=== PATIENT | male | born 1950 | race Caucasian/White ===

== ENCOUNTER 2025-02-14 10:48 | Outpatient (AMB) | payer MEDICARE, SELFPAY ==
[2025-02-14 10:55] VITALS: BP 112/74; PULSE 88; O2SAT 96; BMI 30.6
--- NOTE | 2025-02-14 10:55 | MHC.OFFVIS ---
Vital Signs 02/14/25 10:55 Height 5 ft 7.5 in Weight 198 lb 6.656 oz BMI 30.6 BP 112/74 Blood Pressure Location Lt brachial Position Sitting Pulse 88 Pulse Source Pulse Oximeter Pulse Oximetry (%) 96 Oxygen Delivery Method Room Air Intake Visit Reasons: Hypoxia/Bronchitis Intake Note: pt is here as a new patient, he had covid and was in a coma for over 30 days back 2020. He has oxygen at night 2 liters. Communications Specialist Required: No Allergies No Known Allergies Allergy (Verified 02/14/25 11:49) Medication List - Last Reconciled 02/14/25 by Raghavendra Matamoros MD albuterol sulfate 90 mcg/actuation 2 puffs inhalation Q4H PRN Do you need a note to return to daycare/school/sports/work: No HPI HPI Hypoxia/Bronchitis: Details: 74 YEARS OLD GENTLEMAN IS BEING SEEN FOR THE 1ST TIME FOR PULMONARY EVALUATION AND ONGOING MANAGEMENT. PREVIOUSLY HE HAS BEEN UNDER CARE OF DR.SHAMEEM PITTS ARE HIS PULMONARY ISSUES. HIS PAST MEDICAL HISTORY IS POSITIVE FOR HYPERTENSION, OSTEOARTHRITIS, BOUT OF GI BLEEDING MANY YEARS AGO WHEN HE REQUIRED 2 UNITS OF RED BLOOD CELLS, AND LATELY DEVELOPED TO GI BLEEDING SO HIS ANTICOAGULATION WAS STOPPED AND HE WAS TREATED WITH IVC FILTER. ALSO HAS HISTORY OF THE CERVICAL SPINE SURGERY FOR DEGENERATIVE ARTHRITIS AND HAS HAD BILATERAL HIP REPLACEMENT. PATIENT HAD RECOVERED FROM ALL THESE ILLNESSES, HE WAS QUITE ACTIVE BICYCLING UP TO 50-60 MILES WEEKLY. BACK IN 2020 HE SUFFERED FROM COVID INFECTION, HE WAS TREATED IN [facility] FOR ABOUT 4 WEEKS, . HE STATES THAT HE REMAINED IN COMA FOR A FEW WEEKS, HE WAS ON OXYGEN, HE WAS NOT PUT ON VENTILATOR. LUCKILY AFTER THIS PROLONGED ILLNESS HE DID RECOVER AND THEN SPENT A FEW MONTHS IN THE REHAB UNIT. AFTERWARDS HE HAS HAD RESIDUAL PULMONARY FIBROSIS, WITH A COMPONENT OF OBSTRUCTIVE LUNG DISORDER. HE HAS BEEN ON TRELEGY BRIEFLY THEN BREO WAS ORDERED BUT NOT COVERED BY INSURANCE, SO HE ENDED UP HAVING ONLY ALBUTEROL TO USE ON A P.R.N. BASIS. HE WAS FOUND TO BE HYPOXEMIC AND ESPECIALLY AT NIGHT AND HAS BEEN ON O2 2 L/MINUTE. HE CLAIMS THAT HE HAS NOT NEEDED THE OXYGEN DURING DAYTIME. TODAY HE CLAIMS THAT HE IS DOING WELL. WITH HIS ROUTINE DAILY WALKING HE DOES NOT HAVE ANY SHORTNESS OF BREATH, EVEN NOW HE IS DOING BICYCLING ABOUT 15-20 MILES DAILY. HE USES ALBUTEROL HFA ONLY PRN , WHICH IS MOSTLY AT NIGHT BEFORE HE GOES TO BED. HE USES O2 2 L/MINUTE AT NIGHT ONLY AND NOT DURING THE DAYTIME. [facility] Medical History (Updated 02/14/25 @ 12:03 by Raghavendra Matamoros MD) Nocturnal hypoxemia COPD (chronic obstructive pulmonary disease) Pulmonary fibrosis Social History Patient Tobacco Use Status: Former Tobacco user Review of Systems Const All systems reviewed & are unremarkable except as noted in HPI and below Eyes Reports no additional complaints ENT Reports no additional complaints Card Denies chest pain, Denies irregular heart rhythm, Denies leg edema and Denies dyspnea on exertion Resp Reports as per HPI and Denies dyspnea on exertion GI Reports no additional complaints Reports no additional complaints Musc Reports no additional complaints Skin/Breast Reports system reviewed and no additional complaints, except as documented Neuro Reports no additional complaints Psych Reports no additional complaints Fady/Lymph Reports no additional complaints Aller/Immun Reports no additional complaints Physical Exam Vital Signs: Last Vital Signs Pulse 88 02/14/25 10:55 BP 112/74 02/14/25 10:55 Pulse Ox 96 02/14/25 10:55 Oxygen Delivery Method Room Air 02/14/25 10:55 BMI result Body Mass Index 30.6 Const General: healthy appearing, comfortable, no acute distress, alert and awake Orientation/consciousness: patient oriented x3 HEENT Head: Yes normal to inspection General nose exam: No nasal polyps present and No nasal discharge present Face and sinus: Yes sinuses nontender Mouth: oropharynx normal Throat: Yes posterior oropharynx normal Eyes General: appearance normal, both eyes and all related structures Neck Neck: Yes normal visual inspection, Yes no lymphadenopathy, Yes trachea midline and Yes no JVD Thyroid: Thyroid normal Chest Chest palpation & inspection: normal inspection of the chest, normal palpation of entire chest wall and no tenderness Resp Other: CHEST IS SYMMETRICAL PERCUSSION NOTE RESONANT. BREATH SOUNDS ARE SLIGHTLY DIMINISHED ESPECIALLY OVER THE BASILAR AREAS. NO WHEEZES OR CREPITATIONS ARE HEARD TODAY. Cardio Palpation: normal PMI Rate: regular rate Rhythm: regular rhythm Heart sounds: no gallops and no murmurs Peripheral pulses: Peripheral pulses 2+ throughout GI Palpation (GI): Soft to palpation, nontender, No hepatosplenomegaly present and no masses Auscultation: normal bowel sounds Back/Spine/Pelvis Thoracic/Lumbar Spine: thoracic and lumbar spine normal to inspection Skin General skin exam: no rashes or lesions noted Neuro General: patient oriented x3 and no focal motor deficits Cranial nerves: Yes CN's II-XII intact bilaterally Extrem General: Yes normal to inspection, Yes no clubbing, cyanosis or edema and Yes no calf tenderness Psych Appearance: grossly normal and well kempt Speech and movement: Normal speech and movement present Assessment & Plan Assessment & Plan (1) Pulmonary fibrosis: Comment: HE HAD COVID PNEUMONIA IN 2020 , REQUIRING PROLONGED HOSPITALIZATION. SUBSEQUENT CHEST X-RAY WAS REPORTED TO SHOW PULMONARY FIBROSIS. CLINICALLY PATIENT SEEMS TO BE QUITE STABLE AT THIS TIME. Code(s): J84.10 - Pulmonary fibrosis, unspecified Category: Medical Plan: A BASELINE CHEST X-RAY IS ORDERED. IF NEED BE WE WILL GET A CT SCAN OF THE CHEST. (2) COPD (chronic obstructive pulmonary disease): Comment: HE HE HAS HISTORY OF SMOKING IN THE REMOTE PAST BUT QUIT IN MID 1970S. FOLLOWING THE COVID PNEUMONIA, HE HAS REQUIRED TO USE ALBUTEROL P.R.N.. 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 Code(s): J44.9 - Chronic obstructive pulmonary disease, unspecified Category: Medical Plan: WILL GET A COMPLETE PULMONARY FUNCTION TEST ON HIM. FOR THE TIME BEING JUST USE ALBUTEROL HFA 2 PUFFS Q 6 HOURS P.R.N. IF THERE IS PERSISTENT COUGH OR WHEEZING. (3) Nocturnal hypoxemia: Comment: POST COVID INFECTION/PNEUMONIA, HE WAS NOTED TO HAVE NOCTURNAL HYPOXEMIA, AND STILL USES O2 AT NIGHT. PATIENT HAS NOT REQUIRED TO USE O2 DURING THE DAYTIME. Code(s): G47.34 - Idiopathic sleep related nonobstructive alveolar hypoventilation Category: Medical Plan: ADVISED TO CONTINUE USING O2 2 L/MINUTE AT NIGHT. AT SOME POINT WE CAN DO OVERNIGHT OXIMETRY RECORDING ON ROOM AIR AND SEE IF HE STILL NEEDS OXYGEN OR NOT. Orders: Orders XR chest 2V Today J84.10 - Pulmonary fibrosis, unspecified PFT pulmonary function test Today G47.34 - Idiopathic sleep related nonobstructive alveolar hypoventilation, J44.9 - Chronic obstructive pulmonary disease, unspecified, J84.10 - Pulmonary fibrosis, unspecified Coding Level of Care Code New Pt Level 3 (09839) Diagnoses Pulmonary fibrosis J84.10 COPD (chronic obstructive pulmonary disease) J44.9 Nocturnal hypoxemia G47.34
--- OUTSIDE RECORDS SUMMARY | 2025-02-14 11:39 | XMS_ITS | Clinical Summary ---
Author Organization [employer] Address [address] [facility] [address] [place] [address] Care Team Providers Care Driller Brake Lining Name Role Phone Unavailable Primary Care Provider Unavailabl e Medications cyanocobalamin (Vitamin B-12) 500 MCG tablet Take 500 mcg by mouth in the morning. 06/18/2022 Active ipratropium-albu terol (Duo-Neb) 0.5-2.5 mg/3 mL nebulizer solution INHALE 3 ML INTO THE LUNGS 4 TIMES DAILY. 06/07/2023 Active Fluticasone-Umec lidin-Vilant (Trelegy Ellipta) 100-62.5-25 MCG/ACT aerosol powder Inhale 1 puff in the morning. 06/18/2022 Active Social History Tobacco Use Types Packs/Day Years Used Date Smoking Tobacco: Former Cigarettes Smokeless Tobacco: Never Tobacco Cessation:Counseling Given: Not Answered Sex and Gender Information Value Date Recorded Sex Assigned at Male 07/21/2022 10:36 AM EDT Legal Sex Male 10:36 AM EDT Gender Identity Male 07/21/2022 10:36 AM EDT Sexual Orientation Straight 07/21/2022 10 :36 AM EDT Last Filed Vital Signs Vital Sign Reading Time Taken Comments Blood Pressure 140/87 08/04/2023 10:56 AM EST Pulse 99 08/04/2023 10:56 AM EST Temperature - - Respiratory Rate - - Oxygen Saturation - - Inhaled Oxygen Concentration - - Weight - - Height - - Body Mass Index - - Plan of Treatment Health Maintenance Due Date Last Done Comments Dental X-Ray: Bitewings 1948 Dental X-Ray: Full Mouth 1948 Depression Screening 1948 Lipid Panel 1948 SDOH Screening 1948 Alcohol/Substance Use Screening 1960 Hepatitis C Screening 1966 Zoster Vaccines (1 of 2) 1998 RSV Patients and Patients Aged 60 years or older (1 - 1-dose 75+ series) 12/27/2023 Dental Oral Exam 01/23/2024 07/24/2023 Dental Prophylaxis 02/03/2024 08/04/2023 Pneumococcal Vaccine: 50+ Years (2 of 2 - PCV) 05/01/2024 05/01/2023 COVID-19 Vaccine (3 - season) 2024 12/30/2020, 12/09/2020 Influenza Vaccine (#1) 2024 , 07/10/2017, 07/10/2017, Additional history exists Tobacco Screening 08/04/2024 08/04/2023 DTaP/Tdap/Td Vaccines (3 - Td or Tdap) 05/01/2033 05/01/2023, 04/01/2013 HIB Vaccines Aged Out No longer eligi ble based on patient's age to complete this topic HPV Vaccines Aged Out No longer eligi ble based on patient's age to complete this topic Hepatitis A Vaccines Aged Out No long er eligible based on patient's age to complete this topic Hepatitis B Vaccines Aged Out No long er eligible based on patient's age to complete this topic IPV Vaccines Aged Out No longer eligi ble based on patient's age to complete this topic Meningococcal B Vaccine Aged Out No l onger eligible based on patient's age to complete this topic Meningococcal Vaccine Aged Out No rosy patricia eligible based on patient's age to complete this topic RSV under 20 months Aged Out No longe r eligible based on patient's age to complete this topic Rotavirus Vaccines Aged Out No longer eligible based on patient's age to complete this topic Procedures Procedure Name Priority Date/Time Associated Diagnosis Comments PROPHYLAXIS - ADULT Routine 08/04/2023 1 1:00 AM EST COMPREHENSIVE ORAL EVALUATION - NEW OR ESTABLISHED PATIENT Routine 07/24/2023 10:00 AM EDT from Last 3 Months or Most Recently Relevant to Health Maintenance
== END 2025-02-14 11:49 | disposition home or self-care (01) ==
LOC: HO.HPS 10:49
PROVIDERS: PCP Internal Medicine; Referring Provider Internal Medicine; Visit Provider Internal Medicine
DX: J84.10 Pulmonary fibrosis, unspecified (principal); J44.9 Chronic obstructive pulmonary disease, unspecified; G47.34 Idiopathic sleep related nonobstructive alveolar hypoventilation
CPT/HCPCS: 99203

== ENCOUNTER 2025-02-14 10:48 | Outpatient (REF) | payer MEDICARE, SELFPAY ==
--- NOTE | ~2025-02-14 | XR_ITS ---
EXAMINATION: XR CHEST CLINICAL INFORMATION: J84.10 - Pulmonary fibrosis, unspecified COMPARISON: CT chest 02/04/2022. TECHNIQUE: 2 views of the chest were obtained. FINDINGS: The cardiac, hilar, and mediastinal contours are normal. Aortic mural calcifications. Subpleural increased interstitial markings throughout both lungs, most notable in the right base. Findings are in keeping with given history of interstitial fibrosis. No pneumonic consolidation. There is no pneumothorax or pleural effusion. There is no focal osseous or soft tissue abnormality. There is scoliosis and degenerative change of the spine. XR/XR chest 2V IMPRESSION: Diffuse subpleural increased interstitial markings in keeping with given history of interstitial fibrosis. No focal pneumonia. Electronically signed by: Prakash Wallace MD 02/14/2025 12:54 PM EDT
== END 2025-02-14 10:49 | disposition home or self-care (01) ==
LOC: HO.XRAY 10:48
PROVIDERS: PCP Internal Medicine; Referring Provider Internal Medicine; Visit Provider Internal Medicine
DX: J84.10 Pulmonary fibrosis, unspecified (principal); J44.9 Chronic obstructive pulmonary disease, unspecified; G47.34 Idiopathic sleep related nonobstructive alveolar hypoventilation
CPT/HCPCS: 71046; 99202

== ENCOUNTER → 2025-02-14 11:55 | Outpatient (BNV) | payer MEDICARE, SELFPAY | PROVIDERS: PCP Internal Medicine; Referring Provider Internal Medicine; Visit Provider Radiology Diagnostic Radiology | DX: J84.9 Interstitial pulmonary disease, unspecified (principal) | CPT/HCPCS: 71046 ==

== ENCOUNTER 2025-02-15 09:52 | Outpatient (REF) | payer MEDICARE, SELFPAY ==
--- NOTE | 2025-02-15 09:58 | PFT_ITS ---
Indication: MIKI Spirometry [FEV1 to FVC 87%; FEV1 2.25 L; FVC 2.58 L. No significant response to bronchodilators noted.] Lung Volumes [Total lung capacity 70% predicted; residual volume 60% predicted; expiratory reserve volume 30% predicted] Diffusion Capacity [DLCO 55% predicted; DLCO VA 93% predicted] Comparisons [none] Interpretation [No obstructive ventilatory defects identified. No significant response to bronchodilators noted. There is a mild restrictive ventilatory defect consistent with mild restrictive lung disease. In part could be due to an elevated BMI. There is also a [id number] diffusion impairment that does correct to normal when corrected for the alveolar volume. Clinical correlation warranted.] MTDD
--- OUTSIDE RECORDS SUMMARY | 2025-02-15 10:41 | XMS_ITS | Encounter Summary ---
Author Organization [facility] Address [address] [place] [address] Care Team Providers Care Practice Billing Associate Name Role Phone Spencer Ugalde Primary Care Provider [phone] Reason for Visit * Reason Onset Date Comments Pre-op Needed 07/19/2024 Encounter Details Date Type Department Care Team Description 07/19/2024 Telephone Adult Medicine [address] [address] Spencer Ugalde [address] [place] [id number] Pre-op Needed Social History Tobacco Use Types Packs/Day Years Used Date Smoking Tobacco: Former Cigarettes Q uit: 09/21/1975 Smokeless Tobacco: Never Comments:QUIT 40 YEARS AGO Alcohol Use Standard Drinks/Week Comments No 0 (1 standard drink = 0.6 oz pur e alcohol) Sex Assigned at Date Recorded Not on file Job Start Date Occupation Industry Not on file Not on file Not on file documented as of this encounter Miscellaneous Notes * Telephone Encounter - Fuad Payan - 07/19/2024 4:31 PM EDT Date of surgery:08/31/24 What surgery is patient having (gall bladder, cataract, appendix, etc...)?: Catracts Surgery Surgeon's name: Benedict Avitia MD Office phone number of surgeon: Fax # for surgeons office: n?A (Required) Where is surgery being performed? [facility] Jean Carlos [address] Diagnosis/problem for surgery: N/A Is an EKG required for the pre-op workup? YES PCP: Spencer Ugalde Did you verify that the insurance below is correct? YES Patients insurance: [place] / [place] / Product Type: MEDICARE [id number] documented in this encounter Plan of Treatment Not on file documented as of this encounter Visit Diagnoses Not on filedocumented in this encounter Care Teams Practice Billing Associate Relationship Specialty Start Date End Date Spencer Ugalde [address] [place] [address] PCP - General Internal Medicine 12/03/21 documented as of this encounter
[2025-02-15 10:43] VITALS: PULSE 74; O2SAT 97
== END 2025-02-15 09:53 | disposition home or self-care (01) ==
LOC: HO.RESP 09:52
PROVIDERS: PCP Internal Medicine; Visit Provider Internal Medicine
DX: J44.9 Chronic obstructive pulmonary disease, unspecified (principal); G47.34 Idiopathic sleep related nonobstructive alveolar hypoventilation; J84.10 Pulmonary fibrosis, unspecified
CPT/HCPCS: 94010; 94640; 94727; 94729

== ENCOUNTER → 2025-02-15 09:58 | Outpatient (BNV) | payer MEDICARE, SELFPAY | PROVIDERS: PCP Internal Medicine; Visit Provider Hospitalist | DX: J44.9 Chronic obstructive pulmonary disease, unspecified (principal) | CPT/HCPCS: 94060; 94727; 94729 ==

== ENCOUNTER 2025-03-30 10:08 | Outpatient (AMB) | payer MEDICARE, SELFPAY ==
[2025-03-30 10:20] VITALS: BP 120/80; PULSE 79; O2SAT 96; BMI 31.0
--- NOTE | 2025-03-30 10:20 | A.OFFVIS_ITS ---
Vital Signs 03/30/25 10:20 Height 5 ft 7.5 in Weight 200 lb 9.93 oz BMI 31.0 BP 120/80 Blood Pressure Location Lt brachial Position Sitting Pulse 79 Pulse Source Pulse Oximeter Pulse Oximetry (%) 96 Oxygen Delivery Method Room Air Intake Visit Reasons: Hypoxia/Bronchitis Intake Note: pt is here for follow up and states he gets phlegm build up and he is using oxygen at night every night on 2 liters, please send in refill on albuterol hfa to pharmacy. Laboratory Tester Required: No Allergies No Known Allergies Allergy (Verified 03/30/25 10:45) Medication List - Last Reconciled 03/30/25 by Raghavendra Matamoros MD albuterol sulfate 90 mcg/actuation 2 puffs inhalation Q4H PRN Do you need a note to return to daycare/school/sports/work: No HPI HPI Hypoxia/Bronchitis: Details: This 74 years old very pleasant gentleman is here for short-term follow-up after CT scan of the chest and pulmonary function test. He has mild intermittent cough, sometimes with mucus and not able to clear it. Uses albuterol HFA only once in a while. Physically remains active and he is able to bicycle up to 4 or 5 miles every other day. He has been using oxygen at night 2 L/minute for nocturnal hypoxemia for the last few years, claiming that he sleeps better and his brain is refreshed when he uses oxygen. He is former smoker but quit many years ago. [facility] Medical History (Updated 03/30/25 @ 10:54 by Raghavendra Matamoros MD) Cough Nocturnal hypoxemia COPD (chronic obstructive pulmonary disease) Pulmonary fibrosis Social History Patient Tobacco Use Status: Former Tobacco user Review of Systems Const All systems reviewed & are unremarkable except as noted in HPI and below Eyes Reports no additional complaints ENT Reports no additional complaints Card Denies chest pain, Denies irregular heart rhythm, Denies leg edema and Denies dyspnea on exertion Resp Reports as per HPI and Denies dyspnea on exertion GI Reports no additional complaints Reports no additional complaints Musc Reports no additional complaints Skin/Breast Reports system reviewed and no additional complaints, except as documented Neuro Reports no additional complaints Psych Reports no additional complaints Fady/Lymph Reports no additional complaints Aller/Immun Reports no additional complaints Physical Exam Vital Signs: Last Vital Signs Pulse 79 03/30/25 10:20 BP 120/80 03/30/25 10:20 Pulse Ox 96 03/30/25 10:20 Oxygen Delivery Method Room Air 03/30/25 10:20 BMI result Body Mass Index 31.0 Const General: healthy appearing, comfortable, no acute distress, alert and awake Orientation/consciousness: patient oriented x3 HEENT Head: Yes normal to inspection General nose exam: No nasal polyps present and No nasal discharge present Face and sinus: Yes sinuses nontender Mouth: oropharynx normal Throat: Yes posterior oropharynx normal Eyes General: appearance normal, both eyes and all related structures Neck Neck: Yes normal visual inspection, Yes no lymphadenopathy, Yes trachea midline and Yes no JVD Thyroid: Thyroid normal Chest Chest palpation & inspection: normal inspection of the chest, normal palpation of entire chest wall and no tenderness Resp Other: CHEST IS SYMMETRICAL PERCUSSION NOTE RESONANT. BREATH SOUNDS ARE SLIGHTLY DIMINISHED ESPECIALLY OVER THE BASILAR AREAS. DOES HAVE INSPIRATORY CRACKLES OVER BOTH LOWER LOBES. NO WHEEZES . Cardio Palpation: normal PMI Rate: regular rate Rhythm: regular rhythm Heart sounds: no gallops and no murmurs Peripheral pulses: Peripheral pulses 2+ throughout GI Palpation (GI): Soft to palpation, nontender, No hepatosplenomegaly present and no masses Auscultation: normal bowel sounds Back/Spine/Pelvis Thoracic/Lumbar Spine: thoracic and lumbar spine normal to inspection Skin General skin exam: no rashes or lesions noted Neuro General: patient oriented x3 and no focal motor deficits Cranial nerves: Yes CN's II-XII intact bilaterally Extrem General: Yes normal to inspection, Yes no clubbing, cyanosis or edema and Yes no calf tenderness Psych Appearance: grossly normal and well kempt Speech and movement: Normal speech and movement present Results Reviewed Results Reviewed: PULMONARY FUNCTION TEST: MILD RESTRICTIVE LUNG DISORDER , NO RESPONSE TO BRONCHODILATOR THERAPY. CT SCAN OF THE CHEST, DIFFUSE SUB PLEURAL FIBROTIC CHANGES WITH RETICULATION. Assessment & Plan Assessment & Plan (1) Pulmonary fibrosis: Comment: HE HAD COVID PNEUMONIA IN 2020 , REQUIRING PROLONGED HOSPITALIZATION. SUBSEQUENT CHEST X-RAY WAS REPORTED TO SHOW PULMONARY FIBROSIS. CT SCAN OF THE CHEST CONFIRMS PRESENCE SINCE OF SUB PLEURAL RETICULATION AND FIBROTIC CHANGES. Code(s): J84.10 - Pulmonary fibrosis, unspecified Category: Medical Plan: EXPLAINED TO THE PATIENT ABOUT PULMONARY FIBROSIS, CURRENTLY SYMPTOMS ARE MINIMAL. WILL NEED TO BE MONITORED ON A YEARLY BASIS, I TOLD HIM THAT THE ONLY THING WHICH WILL MAKE IT WORSE IS RECURRENT INFECTIONS AND HE HAS TO AVOID THAT. (2) Nocturnal hypoxemia: Comment: POST COVID INFECTION/PNEUMONIA, HE WAS NOTED TO HAVE NOCTURNAL HYPOXEMIA, AND STILL USES O2 AT NIGHT. PATIENT HAS NOT REQUIRED TO USE O2 DURING THE DAYTIME. 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 IF REQUIRED BY INSURANCE THEN WE MAY HAVE TO DO OVERNIGHT OXIMETRY RECORDING ON ROOM AIR. (3) Cough: Comment: MILD INTERMITTENT COUGH IS SECONDARY TO PULMONARY FIBROSIS, Code(s): R05.9 - Cough, unspecified Category: Medical Plan: PATIENT WAS EDUCATED ABOUT MINIMAL DEGREE OF PULMONARY FIBROSIS, AND REASON FOR COUGH. THE COUGH IS MILD AND NOT VERY FREQUENT , HE DOES NOT NEED ANY COUGH SUPPRESSANT MED. HOWEVER MAY USE ALBUTEROL HFA 2 PUFFS Q 4-6 HOURS P.R.N. IF HE HAS PERSISTENT COUGH OR WHEEZING. Coding Level of Care Code Est Pt Level 3 (34842) Diagnoses Pulmonary fibrosis J84.10 Nocturnal hypoxemia G47.34 Cough R05.9
--- OUTSIDE RECORDS SUMMARY | 2025-03-30 10:45 | XMS_ITS | Encounter Summary ---
Author Organization [facility] Address [address] [place] [address] Care Team Providers Care Automobile Lights Assembler Name Role Phone Spencer Ugalde Primary Care Provider [phone] Reason for Visit * Reason Onset Date Comments Pre-op Needed 07/19/2024 Encounter Details Date Type Department Care Team Description 07/19/2024 Telephone Adult Medicine [address] [address] Spencer Ugalde [address] [place] [id number] Pre-op Needed Social History Tobacco Use Types [...] [facility] [place] [address] Diagnosis/problem for surgery: N/A Is an EKG required for the pre-op workup? YES PCP: Spencer Ugalde Did you verify that the insurance below is correct? YES Patients insurance: [place] / [place] / Product Type: MEDICARE [id number] documented in this encounter Plan of Treatment Not on file documented as of this encounter Visit Diagnoses Not on filedocumented in this encounter Care Teams Automobile Lights Assembler Relationship Specialty Start Date End Date Spencer Ugalde [address] [place] [address] PCP - General Internal Medicine 12/03/21 documented as of this encounter
--- OUTSIDE RECORDS SUMMARY | 2025-03-30 10:45 | XMS_ITS | Clinical Summary ---
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 11/25/2023 Active cyanocobalamin (VITAMIN B-12) 500 mcg tablet Take 500 mcg by mouth three times a week. 07/08/2023 Active TURMERIC ORAL Take 1 Cap by mouth daily. Active multivitamin with minerals (MULTIPLE VITAMIN-MINERAL S ORAL) Take 1 Tab by mouth daily. Active MAGNESIUM ORAL Take 1 Tab by mouth daily. Active UNABLE TO FIND MISC NATURAL PRODUCTS (FOCUSED MIND OR) Sig - Route: Take by mouth daily. - Oral Active fluticasone furoate-vilante roL (BREO ELLIPTA) 100-25 mcg/dose inhaler Inhale 1 puff by mouth 1 (one) time each day. 1 each 5 01/17/2025 Active cyclobenzaprine (FLEXERIL) 5 mg tablet Take 1 tablet (5 mg total) by mouth at bedtime as needed for muscle spasms. 30 tablet 3 01/17/2025 Active albuterol HFA (PROAIR HFA ; PROVENTIL HFA ; VENTOLIN HFA) 90 mcg/actuation inhaler Inhale 2 puffs by mouth every 4 (four) hours if needed for wheezing. 6.7 g 3 01/17/2025 Active Active Problems Problem Noted Date Diagnosed Date B12 deficiency 01/16/2025 Chronic bronchitis (CMS/HCC V24, CMS/[facility] V28) Contact dermatitis 05/06/2024 Chronic respiratory failure with hypoxia ([facility] V24, [facility] V28) 12/20/2021 Gastroesophageal reflux disease without esophagi tis 12/20/2021 Iron deficiency anemia due to chronic blood loss 12/20/2021 Upper GI bleed 12/20/2021 Right carpal tunnel syndrome 06/04/2021 Left carpal tunnel syndrome 03/31/2021 Carpal tunnel syndrome on both sides 07/06/2020 Overview (08/02/2024): EMG/NCS 06/2020 Hyperlipidemia 04/17/2020 Neck pain 05/11/2016 Overview (08/02/2024): 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 HTN (hypertension) 06/12/2014 Benign prostatic hyperplasia with urinary obstru ction 03/16/2014 Microhematuria 03/16/2014 Impaired fasting glucose 04/05/2013 Overview (08/02/2024): Glucose 110 mg per DL, 04/05/2013 Incomplete right bundle branch block 07/02/2011 Osteoarthritis 07/02/2011 Overview (08/02/2024): Left total hip replacement 2001 Encounters Date Type Department Care Team Description 03/21/2025 10:30 AM EDT Consult Orthopedic Surgery - [address] [phone] Dami Rios DPM Arthritis of both feet (Primary Dx); Pain in toes of both feet; Hammertoes of both feet; Dermatophytosis, nail 01/17/2025 11:15 AM EDT Office Visit Adult Medicine [address] [phone] Spencer Ugalde MD Chronic respiratory failure with hypoxia ([facility] V24, [facility] V28) (Primary Dx); Chronic bronchitis, unspecified chronic bronchitis type ([facility] V24, [facility] V28); Mixed hyperlipidemia; Gastroesophageal reflux disease without esophagitis; Spondylosis of cervical region without myelopathy or radiculopathy; Rotator cuff arthropathy of right shoulder; B12 deficiency; Hypertrophic toenail from Last 3 Months Immunizations Name Administration Dates Next Due Influenza trivalent, 0.5mL ( Fluad) 65yo and older 10/01/2023,10/01/2021,07/10/2017 Influenza trivalent, 0.5mL, preservative free (Fluarix; FluLaval; Fluzone) ages 6mo and older (Afluria) 3 years and older 07/15/2012 Pneumococcal polysaccharide 23 valent (Pneumovax 23) 2yo and older 05/01/2023 Td Tetanus diptheria (Tdvax) 7yo and older 05/01 Tdap Tetanus diptheria acell ular pertussis (Boostrix; Adacel) 7yo and older 04/01/2013 Surgical History Surgery Date Site/Laterality Comments HIP ARTHROPLASTY 2001 PROCEDURE: HISTORICAL HIP REPLACEMENT; COMMENT: left COLONOSCOPY 2012 PROCEDURE: ID COLONOSCOPY FLX DX W/COLLJ SPEC WHEN PFRMD; COMMENT: negative HIP ARTHROPLASTY 2014 Right PROCEDURE: HISTORICAL HIP REPLACEMENT NECK SURGERY 2016 PROCEDURE: HISTORICAL NECK SURGERY; COMMENT: c3-c6, Dr. Saavedra CARPAL TUNNEL RELEASE 01/28/2021 Left PROCEDURE: ID NEUROPLASTY &/TRANSPOS MEDIAN NRV CARPAL TUNNE; COMMENT: Dr. Ham Medical History Medical History Date Comments HTN (hypertension) 06/12/2014 DX:HTN (hyper tension) Incomplete right bundle branch block 07/02/2011 DX:Incomplete right bundle branch block Osteoarthritis 07/02/2011 DX:Osteoarthriti s; COMMENT: Left total hip replacement 2002 Impaired fasting glucose 04/05/2013 DX:Impa ired fasting glucose; COMMENT: Glucose 110 mg per DL, 04/05/2013 Microhematuria 03/16/2014 DX:Microhematuri a Benign prostatic hyperplasia with urinary obstruction 03/16/2014 DX:Benign prostatic hyperpla maribel with urinary obstruction Neck pain 05/11/2016 DX:Neck pain; CO MMENT: 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 Gastroesophageal reflux dise ase without esophagitis 12/20/2021 DX:Gastroesophageal reflux d isease without esophagitis Chronic bronchitis (CMS/HCC V24, CMS/HCC V28) 01/16/2025 Family History Medical History Relation Name Comments Other: pancreatitis Father Stomach cancer Mother may have been colon cancer. Diabetes Sister Relation Name Status Comments Father Mother (Age 64) Sister Social History Tobacco Use Types Packs/Day Years Used Date Smoking Tobacco: Former Cigarettes Q uit: 09/21/1975 Smokeless Tobacco: Never Tobacco Cessation:Counseling Given: Not Answered Alcohol Use Standard Drinks/Week Comments No 0 (1 standard drink = 0.6 oz pur e alcohol) Sex and Gender Information Value Date Recorded Sex Assigned at Not on file Legal Sex Male 9:12 PM EST Gender Identity Not on file Sexual Orientation Not on file Obstetrics History Last Filed Vital Signs Vital Sign Reading Time Taken Comments Blood Pressure 124/80 01/17/2025 10:57 AM EDT Pulse 87 01/17/2025 10:57 AM EDT Temperature 36.9 C (98.5 F) 01/17/2025 10:57 AM EDT Respiratory Rate 16 01/17/2025 10:57 AM EDT Oxygen Saturation - - Inhaled Oxygen Concentration - - Weight 92.5 kg (204 lb) 03/21/2025 10:42 AM EDT Height 170.2 cm (5' 7.01 ) 03/21/2025 10:42 AM E DT Body Mass Index 31.94 03/21/2025 10:42 AM EDT Plan of Treatment Upcoming Encounters Date Type Department Care Team (Late st Contact Info) Description 05/23/2025 10:30 AM EDT Office Visit Orthopedic Surgery - [place] [address] [facility] [address] [place] [phone] Dami Rios, DPJanny [address] [address] Health Maintenance Due Date Last Done Comments Zoster Vaccines (1 of 2) 1998 Medicare Annual Wellness Visit 08/30/2022 Social Influencers of Health Screening 08/30/2022 RSV Immunization Adult Patients (1 - 1-dose 75+ series) 12/27/2023 Pneumococcal Vaccine: 50+ Years (2 of 2 - PCV) 05/01/2024 05/01/2023 COVID-19 Vaccine ( - 2023-25 season) 2024 12/30/2020, 12/09/2020 Depression Screening 05/06/2025 05/06/2024 Falls Risk Assessment 05/06/2025 05/06/2024 Hypertension/CHF/CAD Annual BMP Blood Test 05/09/2025 05/09/2024, 05/09/2024 Influenza Vaccine (#1) 2025 , 10/18/2021, 10/01/2021, Additional history exists Cholesterol Screening (Lipid Panel) 05/09/2029 05/09/2024, 05/09/2024 DTaP,Tdap,and Td Vaccines (3 - Td or Tdap) 05/01/2033 05/01/2023, 04/01/2013 Hepatitis C Screening Completed 04/05/2013 HIB Vaccines Aged Out No longer eligi [...] on patient's age to complete this topic MMR Vaccines Aged Out No longer eligi ble based on patient's age to complete this topic Meningococcal ACWY Vaccine Aged Out N o longer eligible based on patient's age to complete this topic Meningococcal B Vaccine Aged Out No l onger eligible based on patient's age to complete this topic RSV Immunization Patients Under 20 months Aged Out No longer eligible based on patient's age to complete this topic Varicella Vaccines Aged Out No longer eligible based on patient's age to complete this topic Procedures Procedure Name Priority Date/Time Associated Diagnosis Comments EXTERNAL XRAY REPORT 02/14/2025 EXTERNAL XRAY REPORT 02/14/2025 ANNUAL BMP BLOOD TEST Routine 05/09/2024 LIPID PANEL Routine 05/09/2024 DEPRESSION SCREENING Routine 05/06/2024 FALLS RISK ASSESSMENT Routine 05/06/2024 HEPATITIS C SCREENING Routine 04/05/2013 from Last 3 Months or Most Recently Relevant to Health Maintenance Results * External Xray Report (02/14/2025) Only the most recent of2 resultswithin the time period is included. Anatomical Region Laterality Modality Radiographic Joslyn ging [facility] Onbase IMG XR PROCEDURES Final Result * Annual BMP Blood Test (05/09/2024) [facility] Annual BMP Blood Test abstracted [facility] Provider HEALTH MAINTENANCE Final Result * (ABNORMAL) Lipid panel (05/09/2024) [facility] LDL/HDL Ratio 4 0 - 4 Triglycerides 181(A) 0 - 150 mg/dL Cholesterol 168 0 - 200 mg/dL HDL 46 >=40 mg/dL LDL Cholesterol 86 0 - 100 mg/dL Blood Venous blood specimen / Unknown Result [facility] Provider LAB BLOOD ORDERABLES Vani l Result * Falls Risk Assessment (05/06/2024) [facility] Falls Risk Assessment abstracted Result [facility] Provider HEALTH MAINTENANCE Final Result * Depression Screening (05/06/2024) [facility] Depression Screening abstracted [facility] Provider HEALTH MAINTENANCE Final Result * Hepatitis C Screening (04/05/2013) [facility] Hepatitis C Screening abstracted Result [facility] Provider HEALTH MAINTENANCE Final Result from Last 3 Months or Most Recently Relevant to Health Maintenance Insurance MEDICARE [facility] Care 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
--- OUTSIDE RECORDS SUMMARY | 2025-03-30 10:45 | XMS_ITS | Clinical Summary ---
Author Organization [employer] Address [address] [facility] [address] [place] [address] Care Team Providers Care Hiv/Aids Care Nurse Name Role Phone Unavailable Primary Care Provider [...] PCV) 05/01/2024 05/01/2023 COVID-19 Vaccine (3 - 2023- season) 2024 12/30/2020, 12/09/2020 Tobacco Screening 08/04/2024 08/04/2023 Influenza Vaccine (#1) 2025 , 07/10/2017, 07/10/2017, Additional history exists DTaP/Tdap/Td Vaccines (3 - Td or Tdap) [...]
== END 2025-03-30 10:45 | disposition home or self-care (01) ==
LOC: HO.HPS 10:08
PROVIDERS: PCP Internal Medicine; Visit Provider Internal Medicine
DX: J84.10 Pulmonary fibrosis, unspecified (principal); G47.34 Idiopathic sleep related nonobstructive alveolar hypoventilation; R05.9 Cough, unspecified
CPT/HCPCS: 99213

== ENCOUNTER → 2025-03-30 10:08 | Outpatient (BNVA) | payer MEDICARE, SELFPAY | PROVIDERS: PCP Internal Medicine; Visit Provider Internal Medicine | DX: J84.10 Pulmonary fibrosis, unspecified (principal); G47.34 Idiopathic sleep related nonobstructive alveolar hypoventilation; R05.9 Cough, unspecified; Z99.81 Dependence on supplemental oxygen | CPT/HCPCS: 99212 ==